=== PATIENT | female | born 1950 | race Caucasian/White ===

== ENCOUNTER → 2022-06-27 | Outpatient (CLI) | payer MEDICARE, OTHER | END | disposition home or self-care (01) | LOC: EDUNIT# 11:30 → RAH 11:41 | PROVIDERS: ATTEND Nurse Practitioner Family | DX: G45.3 Amaurosis fugax (principal); E03.9 Hypothyroidism, unspecified | CPT/HCPCS: 70551; 76536; 93880 ==

== ENCOUNTER → 2022-11-07 | Outpatient (CLI) | payer MEDICARE | END | disposition home or self-care (01) | LOC: RAH 13:55 | PROVIDERS: ATTEND Otolaryngology | DX: J32.9 Chronic sinusitis, unspecified (principal); K11.20 Sialoadenitis, unspecified | CPT/HCPCS: 70486; 76536 ==

== ENCOUNTER → 2023-01-31 | Outpatient (CLI) | payer MEDICARE | END | disposition home or self-care (01) | LOC: RAH 09:09 | PROVIDERS: ATTEND Nurse Practitioner Family | DX: N20.0 Calculus of kidney (principal); N28.1 Cyst of kidney, acquired; N23 Unspecified renal colic; N13.30 Unspecified hydronephrosis | CPT/HCPCS: 76770 ==

== ENCOUNTER → 2023-01-31 | Outpatient (CLI) | payer OTHER | END | disposition home or self-care (01) | LOC: RAH 09:04 | PROVIDERS: ATTEND Internal Medicine Cardiovascular Disease | DX: Z12.31 Encounter for screening mammogram for malignant neoplasm of breast (principal); Z13.6 Encounter for screening for cardiovascular disorders; R93.1 Abnormal findings on diagnostic imaging of heart and coronary circulation | CPT/HCPCS: 75571; 77067 ==

== ENCOUNTER → 2023-03-24 | Outpatient (CLI) | payer MEDICARE ==
[2023-03-24 16:28] LABS: CREATININE 0.7 mg/dL (0.5-1.5); POTASSIUM 3.9 mmol/L (3.5-5.1)
== END | disposition home or self-care (01) ==
LOC: LAB 15:27
PROVIDERS: ATTEND Nurse Practitioner Family
DX: G45.3 Amaurosis fugax (principal)
CPT/HCPCS: 36415; 80048

== ENCOUNTER → 2023-03-28 | Outpatient (CLI) | payer MEDICARE ==
[~2023-03-28] MED LIST: GADOTERATE MEGLUMINE 10 MMOL/20 ML VIAL IV ONE
== END | disposition home or self-care (01) ==
LOC: RAH 14:07
PROVIDERS: ATTEND Nurse Practitioner Family
DX: G45.3 Amaurosis fugax (principal); I70.90 Unspecified atherosclerosis
CPT/HCPCS: 70544; 70549; A9575

== ENCOUNTER → 2023-05-16 | Outpatient (CLI) | payer MEDICARE ==
[~2023-05-16] MED LIST changes: -GADOTERATE MEGLUMINE 10 MMOL/20 ML VIAL IV ONE; +REGADENOSON 0.4 MG/5 ML PF SYG IVP ONE
== END | disposition home or self-care (01) ==
LOC: SHCH 08:58
PROVIDERS: ATTEND Internal Medicine Cardiovascular Disease
DX: I25.10 Atherosclerotic heart disease of native coronary artery without angina pectoris (principal)
CPT/HCPCS: 78452; 96374; 93017; A9500 ×2; J2785 ×2

== ENCOUNTER 2023-10-13 10:12 | Day surgery (SDC) | payer MEDICARE ==
[2023-10-11 11:54] LABS: BASOPHILS # (AUTO) 0.02 K/uL (0.00-0.20); BASOPHILS % (AUTO) 0.3 % (0.0-5.0); EOSINOPHILS # (AUTO) 0.14 K/uL (0.00-0.70); IMMATURE GRANULOCYTE ABSOLUTE 0.02 K/uL (0-1); LYMPHOCYTES # (AUTO) 1.5 K/uL (1.0-4.8); LYMPHOCYTES % (AUTO) 21.3 % (21.0-51.0); MEAN CORPUSCULAR HEMOGLOBIN 31.2 pg (27.0-33.0); MEAN CORPUSCULAR VOLUME 94.5 fL (79-99); MONOCYTES # (AUTO) 0.6 K/uL (0.1-1.0); MONOCYTES % (AUTO) 7.8 % (3.0-13.0); NEUTROPHILS # (AUTO) 4.8 K/uL (1.8-7.7); NEUTROPHILS % (AUTO) 68.3 % (40.0-77.0); PLATELET COUNT (AUTO) 232 K/uL (130-400); RED BLOOD CELL COUNT(AUTO) 4.55 MIL/uL (4.00-5.50); RED CELL DISTRIBUTION WIDTH 12.8 % (11.0-15.5)
[2023-10-11 12:19] LABS: CREATININE 0.8 mg/dL (0.5-1.0); POTASSIUM 3.9 mmol/L (3.5-5.1)
[2023-10-11 13:35] VITALS: BP 166/80; PULSE 87; RESP 19
[~2023-10-13] VITALS: Ht 167.6 cm; Wt 83.9 kg
[2023-10-13] VITALS (14 sets, daily range): BP systolic 104–132; BP diastolic 52–76; PULSE 65–80; RESP 14–20
[~2023-10-13 10:12] MED LIST changes: +AREDS PO; +BENEFIBER PO; +BIOTENE RINSE PO; +BIOTENE SPRAY PO; +BIOTIN PO; +CARB15DR OU; +CEVI30CA7 PO; +COLLAGEN PO; +DULO30CA52 PO; +FENT12PAT TP; +FLUTICASONE NASAL; +FOLIC ACID PO; +GABAPENTIN PO; +GUIAFENESIN PO; +LEVO25CA4 PO; +LEVO25TA54 PO; +MELA1TAB73 PO; +METH-811 PO; +METR45CR TP; +MIRA50TA PO; +POLYETHYLENE PO; +PROBIOTIC PO; -REGADENOSON 0.4 MG/5 ML PF SYG IVP ONE; +TURMERIC CURCUMIN PO; +VITAMIN B 12 PO; +ZOLP10TA2 PO
[2023-10-13] MEDS ORDERED: CEFTRIAXONE 1G VIAL ONE (10:26)
[2023-10-13] MEDS ORDERED: LACTATED RINGERS 1000ML 1,000 ML IV ONE (10:26)
[2023-10-13] MEDS ORDERED: LEVO25TA54 PO (11:39)
[2023-10-13] MEDS ORDERED: ACETAMINOPHEN 1,000 MG/100 ML VIAL IV ONE (11:43)
[2023-10-13] MEDS ORDERED: PROPOFOL 10 MG/ML 20ML VIAL IV ONE (11:48)
[2023-10-13] MEDS ORDERED: ROCURONIUM BROMIDE 10MG/1ML 5ML VL ONE (11:57)
[2023-10-13] MEDS ORDERED: CLOP75TA32 PO (13:46)
== END 2023-10-13 14:30 | disposition home or self-care (01) ==
LOC: DAH 10:12
PROVIDERS: ATTEND Urology
DX: D41.4 Neoplasm of uncertain behavior of bladder (principal); N30.20 Other chronic cystitis without hematuria; J44.9 Chronic obstructive pulmonary disease, unspecified; N32.81 Overactive bladder; G47.30 Sleep apnea, unspecified; K21.9 Gastro-esophageal reflux disease without esophagitis; M79.7 Fibromyalgia; Z79.899 Other long term (current) drug therapy; Z98.890 Other specified postprocedural states; Z90.49 Acquired absence of other specified parts of digestive tract; Z88.6 Allergy status to analgesic agent
CPT/HCPCS: 80048; 85025; 36415; 93005; 52204; 88305; A6260; A4663; J7120 ×2; A4344; C1758; J3490; J0696; J2704; A4358; A4215; A4223; A4213; A4222; A4221; A4510; A4600